=== PATIENT | male | born 1985 | race Caucasian/White ===

== ENCOUNTER 2018-09-04 05:31 | Emergency (ER) | payer OTHER ==
[2018-09-04] MEDS ORDERED: NS 1,000 ML IV ONE ×2 (05:55→06:42)
[2018-09-04] MEDS ORDERED: ONDANSETRON 4 MG/2 ML VIAL IVP ONE (05:55)
--- NOTE | 2018-09-04 06:03 | EDPHY ---
H & P Stated Complaint: concerned for demond's crisis. Abd cramping yesterday @noon - Personal History Current Tetanus/Diphtheria Vaccine: Yes Current Tetanus Diphtheria and Acellular Pertussis (TDAP): Yes - Medical/Surgical History Hx Asthma: No Hx Chronic Respiratory Disease: No Hx Diabetes: No Hx Cardiac Disease: No Hx Renal Disease: No Hx Cirrhosis: No Hx Alcoholism: No Hx HIV/AIDS: No Hx Splenectomy or Spleen Trauma: No Other PMH: demond's disease, lilian's - Social History Smoking Status: Never smoked Time Seen by Provider: 09/04/18 05:45 HPI/ROS: Chief Complaint: Abdominal cramping, nausea, diarrhea HPI: 33-year-old male with a history of Calhoun's disease and Lilian's thyroiditis presenting with abdominal cramping, nausea and diarrhea. Symptoms began yesterday afternoon. Patient had a similar episode in the past which is diagnosis an addisonian crisis. After symptoms began the patient's self administered additional hydrocodone cortisone orally and give himself 125 mg of Solu-Medrol IV. Is continuing to have abdominal cramping, 4/10. Nausea. He is having several episodes of diarrhea overnight. No fevers or chills. No recent illness. No cough. No chest pain or shortness of breath. No headache. His prior episode was triggered with a flu-like illness and also increased stress. Patient states that his stress level has been normal. ROS: 10 systems were reviewed and were negative except those elements noted in the HPI. PMH: Calhoun's disease, hypothyroidism, Lilian's thyroiditis Social History: No smoking Family History: non-contributory Physical Exam: Gen: Awake, Alert, No Distress HEENT: Nose: no rhinorrhea Eyes: PERRLA, EOMI Mouth: Moist mucosa Neck: Supple, no JVD Chest: nontender, lungs clear to auscultation Heart: S1, S2 normal, no murmur Abd: Soft, non-tender, no guarding Back: no CVA tenderness, no midline tenderness Ext: no edema, non-tender Skin: no rash Neuro: CN II-XII intact, Sensation grossly intact, Strength 5/5 in bilateral upper and lower extremities (Storm Gould) Constitutional: Initial Vital Signs Temperature (C) 37.3 C 09/04/18 05:35 Heart Rate 110 H 09/04/18 05:35 Respiratory Rate 18 09/04/18 05:35 Blood Pressure 114/91 H 09/04/18 05:35 O2 Sat (%) 98 09/04/18 05:35 O2 Delivery Mode Room Air Allergies/Adverse Reactions: No Known Allergies Allergy (Unverified 09/04/18 05:31) Home Medications: Medication Instructions Recorded Cholecalciferol Vit D3 09/04/18 Flurocortisone 09/04/18 Hydrocortisone 09/04/18 Levothyroxine 09/04/18 Multivitamins [Multivitamin (*)] 09/04/18 Ondansetron Odt [Zofran Odt 4 mg 4 mg PO Q4 PRN #6 tab 09/04/18 (*)] diphenhydrAMINE 09/04/18 Medical Decision Making ED Course/Re-evaluation: Patient's blood glucose is normal. Creatinine is a little bit elevated 1.5 indicating dehydration. Other some mild tachycardia his hemodynamics are fine. I do not believe he is anticipating crisis. He has appropriate self treated. Plan will be to continue hydration and reassess. I have also ordered Toradol for his abdominal cramping. 0700 patient signed out to Dr. Rey pending continued hydration and reassessment. (Storm Gould) 7:00 a.m.-I assumed care of this patient at shift change. He is feeling better after IV fluids, Toradol and Zofran. Electrolytes and glucose are unremarkable , no evidence of acute addisonian crisis. 2nd L of IV fluids infusing. Plan to discharge home after IV fluids. He will increase his steroids at home for few days. Return for worsening symptoms or any concerns. (Arin Rey) Differential Diagnosis: Differential diagnosis includes though it is not limited to appendicitis, cholecystitis, diverticulitis, pyelonephritis, bowel perforation, small bowel obstruction. (Arin Rey) - Data Points Laboratory Results: Laboratory Results 09/04/18 06:00 09/04/18 06:00 09/04/18 09/04/18 06:00 06:00 WBC 11.26 10^3/uL H 10^3/uL (3.80-9.50) RBC 4.65 10^6/uL 10^6/uL (4.40-6.38) Hgb 14.7 g/dL g/dL (13.7-17.5) Hct 41.5 % % (40.0-51.0) MCV 89.2 fL fL (81.5-99.8) MCH 31.6 pg pg (27.9-34.1) MCHC 35.4 g/dL g/dL (32.4-36.7) RDW 12.6 % % (11.5-15.2) Plt Count 227 10^3/uL 10^3/uL (150-400) MPV 9.6 fL fL (8.7-11.7) Neut % (Auto) 88.5 % H % (39.3-74.2) Lymph % (Auto) 5.1 % L % (15.0-45.0) Elbert % (Auto) 5.7 % % (4.5-13.0) Eos % (Auto) 0.4 % L % (0.6-7.6) Baso % (Auto) 0.1 % L % (0.3-1.7) Nucleat RBC Rel Count 0.0 % % (0.0-0.2) Absolute Neuts (auto) 9.98 10^3/uL H 10^3/uL (1.70-6.50) Absolute Lymphs (auto) 0.57 10^3/uL L 10^3/uL (1.00-3.00) Absolute Monos (auto) 0.64 10^3/uL 10^3/uL (0.30-0.80) Absolute Eos (auto) 0.04 10^3/uL 10^3/uL (0.03-0.40) Absolute Basos (auto) 0.01 10^3/uL L 10^3/uL (0.02-0.10) Absolute Nucleated RBC 0.00 10^3/uL 10^3/uL (0-0.01) Immature Gran % 0.2 % % (0.0-1.1) Seg Neutrophils % 92.9 % % Band Neutrophils % 0.0 % % Lymphocytes % 5.1 % % Monocytes % 2.0 % % Eosinophils % 0.0 % % Basophils % 0.0 % % Metamyelocytes % 0.0 % % Myelocytes % 0.0 % % Promyelocytes % 0.0 % % Blast Cells % 0.0 % % Immature Gran # 0.02 10^3/uL 10^3/uL (0.00-0.10) Absolute Seg Neuts 10.46 10^3/uL H 10^3/uL (1.70-6.50) Absolute Band Neuts 0.00 10^3/uL 10^3/uL (0.00-0.70) Absolute Lymphocytes 0.57 10^3/uL L 10^3/uL (1.00-3.00) Absolute Monocytes 0.23 10^3/uL L 10^3/uL (0.30-0.80) Absolute Eosinophils 0.00 10^3/uL L 10^3/uL (0.03-0.40) Absolute Basophils 0.00 10^3/uL L 10^3/uL (0.02-0.10) Absolute Metamyelocyte 0.00 10^3/mL 10^3/mL (0.00-0.00) Absolute Myelocytes 0.00 10^3/mL 10^3/mL (0.00-0.00) Absolute Promyelocytes 0.00 10^3/uL 10^3/uL (0.00-0.00) Absolute Plasma Cells 0.00 10^3/uL 10^3/uL (0.00-0.00) Nucleated RBCs 0 /100 WBC /100 WBC (0-0) Absolute Blast Cells 0.00 10^3/uL 10^3/uL (0.00-0.00) Plasma Cells % 0.0 % % Platelet Estimate ADEQUATE (ADEQ) Sodium 140 mEq/L mEq/L (135-145) Potassium 4.0 mEq/L mEq/L (3.3-5.0) Chloride 103 mEq/L mEq/L (97-110) Carbon Dioxide 28 mEq/l mEq/l (22-31) Anion Gap 9 mEq/L mEq/L (6-14) BUN 14 mg/dL mg/dL (7-23) Creatinine 1.4 mg/dL H mg/dL (0.7-1.3) Estimated GFR 59 Glucose 118 mg/dL H mg/dL (70-100) Calcium 9.4 mg/dL mg/dL (8.5-10.4) Medications Given: Discontinued Medications Sodium Chloride (Ns) 1,000 mls @ 0 mls/hr IV ONCE ONE; Wide Open PRN Reason: Protocol Stop: 09/04/18 05:56 Last Admin: 09/04/18 06:05 Dose: 1,000 mls Sodium Chloride (Ns) 1,000 mls @ 0 mls/hr IV ONCE ONE; Wide Open PRN Reason: Protocol Stop: 09/04/18 06:43 Last Admin: 09/04/18 06:55 Dose: 1,000 mls Ketorolac Tromethamine (Toradol) 15 mg IVP EDNOW ONE Stop: 09/04/18 06:45 Last Admin: 09/04/18 06:56 Dose: 15 mg Ondansetron HCl (Zofran) 4 mg IVP EDNOW ONE Stop: 09/04/18 05:56 Last Admin: 09/04/18 06:06 Dose: 4 mg Departure - Departure Disposition: Home, Routine, Self-Care Clinical Impression: Acute gastroenteritis Condition: Good Instructions: Gastroenteritis (ED) Additional Instructions: 1. Clear liquids for 24 hours. 2. Advance diet as tolerated. I suggest the BRAT diet to start: bananas, rice, applesauce and toast. 3. Return for worsening symptoms, persistent vomiting, abdominal pain, any concerns. Referrals: Mildred Solis MD [place] [place] - As per Instructions Prescriptions: Ondansetron Odt [Zofran Odt 4 mg (*)] 4 mg PO Q4 PRN #6 tab PRN Reason: Nausea
[2018-09-04 06:09] LABS: PLATELET COUNT 227 10^3/uL (150-400)
[2018-09-04] MEDS ORDERED: KETOROLAC 15 MG/1 ML SDV IVP ONE (06:44)
[2018-09-04 08:24] VITALS: BP 134/74
== END 2018-09-04 08:28 | disposition home or self-care (01) ==
DX: K52.9 Noninfective gastroenteritis and colitis, unspecified (principal); D51.0 Vitamin B12 deficiency anemia due to intrinsic factor deficiency; E06.3 Autoimmune thyroiditis; E86.9 Volume depletion, unspecified; Z79.899 Other long term (current) drug therapy
CPT/HCPCS: 96374; J1885; J2405